=== PATIENT | female | born 1945 | race Caucasian/White ===

== ENCOUNTER 2017-07-20 11:22 | Inpatient (IN) | payer MEDICARE ==
[~2017-07-20 11:22] MED LIST: ACETAMINOPHEN 1,000 MG/100 ML BTL IV ONE; CEFAZOLIN 2 Gram 2 GM/50 ML BAG IVPB ONE; FAMOTIDINE 20MG TABLET PO ONE; MECLIZINE 25 MG TABLET PO ONE; METOCLOPRAMIDE 10 MG TABLET PO ONE
[2017-07-20] MEDS ORDERED: FENTANYL PF 100MCG/2ML VIAL IV ONE (14:00)
[2017-07-20] MEDS ORDERED: MORPHINE SULFATE 5 MG/ML PFS IVP ONE (14:00)
[2017-07-20] MEDS ORDERED: SUGAMMADEX SODIUM 200 MG/2 ML VIAL IV ONE (14:00)
[2017-07-20] MEDS ORDERED: SEVOFLURANE 250 ML INH ONE (14:00)
[2017-07-20] MEDS ORDERED: EPHEDRINE SULFATE 50 MG/ML ML IV ONE (14:00)
[2017-07-20] MEDS ORDERED: PROPOFOL 10 MG/ML VIAL IV ONE (14:00)
[2017-07-20] MEDS ORDERED: LIDOCAINE 2% MDV (20MG/ML) 20ML VIAL IV ONE (14:00)
[2017-07-20] MEDS ORDERED: ONDANSETRON HCL IV 4 MG/2 ML VIAL IVP ONE (14:00)
[2017-07-20] MEDS ORDERED: MIDAZOLAM HCL 2MG/2ML VIAL IV ONE (14:00)
[2017-07-20] MEDS ORDERED: KETOROLAC 30 MG/ML VIAL IVP ONE (14:00)
[2017-07-20] MEDS ORDERED: OXYCODONE HCL 5 MG TABLET PO PRN ×2 (14:23)
[2017-07-20] MEDS ORDERED: OXYCODONE HCL/APAP 5MG/325MG TABLET PO PRN ×2 (14:23)
[2017-07-20] MEDS ORDERED: HYDROCODONE/APAP 5/325MG TABLET PO PRN (14:23)
[2017-07-20] MEDS ORDERED: DIPHENHYDRAMINE HCL 25 MG CAPSULE PO PRN (14:30)
[2017-07-20] MEDS ORDERED: ONDANSETRON HCL IV 4 MG/2 ML VIAL IVP PRN (14:30)
[2017-07-20] MEDS ORDERED: TRAMADOL HCL 50 MG TABLET PO PRN ×2 (14:30)
[2017-07-20] MEDS ORDERED: ZOLPIDEM TARTRATE 5 MG TABLET PO PRN (14:30)
[2017-07-20] MEDS ORDERED: MAGNESIUM HYDROXIDE 30 ML UDC PO PRN (14:30)
[2017-07-20] MEDS ORDERED: METOCLOPRAMIDE HCL 10 MG/2 ML VIAL IVP PRN (14:30)
[2017-07-20] MEDS ORDERED: SENNOSIDES/DOCUSATE SODIUM UD CAPSULE PO PRN (14:30)
[2017-07-20] MEDS ORDERED: AL HYDROX/MAG HYDROX 30ML UD PO PRN (14:30)
[2017-07-20] MEDS ORDERED: HETASTARCH IN 0.9 % NACL 500 ML IV ONE (15:20)
[2017-07-20] MEDS: HYDROCODONE/APAP 5/325MG TABLET PO PRN (15:32)
[2017-07-20] MEDS: RINGERS SOLUTION,LACTATED 1,000 ML IV SCH (15:42)
[2017-07-20] MEDS ORDERED: PNEUM 23-VAL ADULT IM ONE (15:46)
[2017-07-20] MEDS ORDERED: RINGERS SOLUTION,LACTATED 1,000 ML IV PRN (16:23)
--- NOTE | 2017-07-20 18:07 | Rehab Evaluation ---
Patient Information - Patient Information Diagnosis: OA R hip, s/p total hip arthroplasty Ordered Treatment: PT Evaluate and Treat Status: Initial Evaluation Surgery: Yes (R RAJINDER) Date of Surgery: 07/20/17 History: Detail (Pt has had progressive degeneration of R hip over the past couple of years, experiencing increasing pain and difficulty walking.) Past Med/Ashley Hx Detail: Detail Past Medical/Surgical Hx: PAST MEDICAL/SURGICAL HISTORY Past Surgical History left RAJINDER 5-16 hysterectomy; foot sx left; bilateral total knee arthroplasty; colonoscopy-several PMH - Respiratory Hx Respiratory Disorders No Hx of URI Yes Hx of Productive Cough Yes Comment: sinus drainage and runny nose with clear prod cough x's 4 days no fever PMH - Cardiovascular Hx Cardiovascular Disorders Yes Hx Hypotension Yes Hx Palpitations Yes: 'fluttery sometimes" Exercise Tolerance Good PMH - Neuro Hx Neurological Disorders Yes Hx Dizziness Yes: sometimes Hx Headaches Yes Hx Syncope Yes: several times-low BP? PMH - GI Hx Gastrointestinal Disorders Yes PMH - Hx Genitourinary Disorders Yes Hx Bladder Problem Yes: frequent urination Comment: hyst PMH - Endocrine Hx Endocrine Disorders No Comment: blood sugar was low on pre op labs PMH - Musculoskeletal Hx Musculoskeletal Disorders Yes Hx Arthritis Yes: osteoarthritis in left hip PMH - Psych Hx Psychiatric Problems Yes Hx Depression Yes PMH - Hematology/Oncology Hx Hematology/Oncology Yes Disorders Hx Anemia Yes: hx of Hx Cancer Yes: skin cancer bcc and squamous Premorbid Status: Detail (Pt was ambulating over community distances/surfaces w/ o assistive device but had somewhat antalgic quality to her gait.) Social History: Detail (Pt lives in 2 story home w/spouse, for whom she is primary caregiver. She has been living on the first floor primarily recently. She has two steps to get into the house with handrails on both sides, as well as a ramp. She has elevated toilet and walk-in shower with grab bars and shower chair. She will have her sister, a retired nurse, stay with her for a week or two after returning home.) Precautions: [place], Fall, Other (Total hip arthroplasty precautions for posterior approach) - Time With Patient Total Time Spent With Patient (Min): 45 Treatment Procedures: Detail (PT Evaluation) Subjective Information - Subjective Information Per Patient (Pt in bed upon arrival, awake/alert, cooperative for therapy. States she is having very little pain, no nausea, a little lightheaded.) Objective Data - Pain Pain Present: Yes Pain Intensity: 2 Pain Scale Used: Numeric (1 - 10) - Mental Status Patient Orientation: Oriented x3 - Visual Perception Appears within normal limits for therapeutic activities - ROM Not within normal limits (WNL in R LE and L knee and ankle; within RAJINDER precautions in L hip.) - Strength/Tone Not within normal limits (3/5 strength in L hip flexion, abduction, adduction, extension; 4/5 L knee flex/ext, 4+/5 L ankle df. All major ms groups of R LE are 4+/5.) - Coordination Appears within normal limits for therapeutic activities - Bed Mobility Needs Assist (CGA for L LE, used trapeze to scoot to edge of bed.) - Transfers Needs Assist (CGA/SBA for sit/stand transfers to front-wheeled walker, to bedside chair.) - Balance Balance Sitting: Good Balance Standing: Good - Sensation Intact - Gait Detail (Pt ambulated from bedside out to hallway for 52 feet and returned to bedside chair (about 115 feet total), WBAT L LE w/SBA and front wheeled walker.) Therapy Assessment - Therapy Assessment Detail (Pt exhibits mobility impairments consistent with post surgical condition. She is a good candidate for inpatient physical therapy.) Patient Education - Patient Education Teaching Topic: Equipment Use, Exercise/Activity, Precautions Response: Reinforcement Needed, Verbalize Understanding Teaching Method: Discussion Teaching Recipient: Patient Barriers To Learning: None Problem List - Problem List Physical Therapy Problem List: Detail (1. Requires assist w/bed mobility. 2. Requires assist w/transfers. 3. Difficulty walking. 4. General weakness L LE.) Goals - Goals Physical Therapy Goals: 1. Pt will safely and independently get in/out of bed. 2. Pt will safely and independently transfer from bed to chair or toilet. 3. Pt will safely ambulate w/front wheeled walker over household distances w/ supervision. 4. Pt will safely ascend/descend three steps w/walker and handrail w/supervision/CGA. 5. Pt will be independent in basic home exercise program. Prognosis - Prognosis Good Plan - Plan Physical Therapy Plan: Pt will be seen twice tomorrow to address bed mobility, transfers, gait and home exercise program. Anticipate discharge after second session.
[2017-07-20] MEDS: CEFAZOLIN 2 Gram 2 GM/50 ML BAG IVPB SCH (19:57)
[2017-07-20] MEDS: ASPIRIN 325 MG TAB ENTERIC-COATED PO SCH (22:25)
[2017-07-21] MEDS: HYDROCODONE/APAP 5/325MG TABLET PO PRN ×2 (03:15→08:42)
[2017-07-21] MEDS: CEFAZOLIN 2 Gram 2 GM/50 ML BAG IVPB SCH ×2 (03:16→11:46)
[2017-07-21 06:53] LABS: HEMATOCRIT 27.4 % (35.0-47.0); HEMOGLOBIN 8.8 gm/dl (11.6-16.0); MEAN CELL VOLUME 93.2 fl (81-97); MEAN CORPUSCULAR HEMOGLOBIN 29.9 pg (27-33); MEAN CORPUSCULAR HGB CONC 32.1 g/dl (32-36); MEAN PLATELET VOLUME 9.8 fl (7.4-10.4); PLATELET COUNT 232 K/uL (130-400); RED BLOOD COUNT 2.94 M/uL (3.80-5.40); RED CELL DISTRIBUTION WIDTH 13.8 % (11.5-14.5); WHITE BLOOD COUNT W/O DIFF 5.2 K/uL (4.2-12.2)
[2017-07-21] MEDS: RINGERS SOLUTION,LACTATED 1,000 ML IV SCH (08:43)
[2017-07-21] MEDS: ASPIRIN 325 MG TAB ENTERIC-COATED PO SCH (09:49)
--- NOTE | 2017-07-21 11:01 | Physical Therapy Tx Note ---
Physical Therapy Tx Note - Treatment Note Tolerated: Good Total Time Spent With Patient: 30 Physical Therapy Tx Note: Detail (Pt up in chair upon arrival, awake/alert, cooperative for therapy. Performed 10 reps each of reclined marching, LAQ, ankle pumps, isometric hip adduction w/pillow, isometric hip abduction w/manual resistance, gluteal isometrics. Sit/stand to front-wheeled walker independently , ambulated from bedside to nrsg station and back to bed (about 156 feet), with SBA and assist for IV pole. SBA for R LE up onto bed; placed pillow between LE' s, reapplied intermittent compression, placed call light and bedside table in reach.) Physical Therapy Problem List: Detail (1. Requires assist w/bed mobility. 2. Requires assist w/transfers. 3. Difficulty walking. 4. General weakness L LE.) Physical Therapy Goals: 1. Pt will safely and independently get in/out of bed. 2. Pt will safely and independently transfer from bed to chair or toilet - MET. 3. Pt will safely ambulate w/front wheeled walker over household distances w/ supervision - MET. 4. Pt will safely ascend/descend three steps w/walker and handrail w/supervision/CGA. 5. Pt will be independent in basic home exercise program - MET. Prognosis: Good Physical Therapy Plan: Pt will be seen this afternoon to address bed mobility, transfers, gait and stair training. Anticipate discharge after PT.
--- NOTE | 2017-07-21 11:31 | Rehab Evaluation ---
Patient Information - Patient Information Diagnosis: OA R hip, s/p total hip arthroplasty Ordered Treatment: OT Evaluate and Treat Status: Initial Evaluation Surgery: Yes (R RAJINDER) Date of Surgery: 07/20/17 History: Detail (Pt has had progressive degeneration of R hip over the past couple of years, experiencing increasing pain and difficulty walking.) Past Medical/Surgical Hx: PAST MEDICAL/SURGICAL HISTORY Past Surgical History left RAJINDER 5-16 hysterectomy; foot sx left; bilateral total knee arthroplasty; colonoscopy-several PMH - Respiratory Hx Respiratory Disorders No Hx of URI Yes Hx of Productive Cough Yes Comment: sinus drainage and runny nose with clear prod cough x's 4 days no fever PMH - Cardiovascular Hx Cardiovascular Disorders Yes Hx Hypotension Yes Hx Palpitations Yes: 'fluttery sometimes" Exercise Tolerance Good PMH - Neuro Hx Neurological Disorders Yes Hx Dizziness Yes: sometimes Hx Headaches Yes Hx Syncope Yes: several times-low BP? PMH - GI Hx Gastrointestinal Disorders Yes PMH - Hx Genitourinary Disorders Yes Hx Bladder Problem Yes: frequent urination Comment: hyst PMH - Endocrine Hx Endocrine Disorders No Comment: blood sugar was low on pre op labs PMH - Musculoskeletal Hx Musculoskeletal Disorders Yes Hx Arthritis Yes: osteoarthritis in left hip PMH - Psych Hx Psychiatric Problems Yes Hx Depression Yes PMH - Hematology/Oncology Hx Hematology/Oncology Yes Disorders Hx Anemia Yes: hx of Hx Cancer Yes: skin cancer bcc and squamous Premorbid Status: Detail (Pt was ambulating over community distances/surfaces w/ o assistive device but had somewhat antalgic quality to her gait.) Social History: Detail (Pt lives in 2 story home w/spouse, for whom she is primary caregiver. She has been living on the first floor primarily recently. She has two steps to get into the house with handrails on both sides, as well as a ramp. She has elevated toilet and walk-in shower with grab bars and shower chair. She will have her sister, a retired nurse, stay with her for a week or two after returning home. She is Ind with all ADLs/IADLs and has a 2 wheeled walker, shower chair, practice administrator, sock aid and shoe horn.) Precautions: [place], Fall, Other (Total hip arthroplasty precautions for posterior approach) - Time With Patient Total Time Spent With Patient (Min): 40 Treatment Procedures: Detail (OT eval low complexity) Subjective Information - Subjective Information Per Patient Objective Data - Pain Pain Present: Yes (07/01) - Mental Status Patient Orientation: Oriented x3 - Visual Perception Appears within normal limits for therapeutic activities (Pt wears glasses.) - ROM Within normal limits (Hernandez UE AROM WNL) - Strength/Tone Within normal limits (Hernandez UE strength WNL) - Coordination Appears within normal limits for therapeutic activities - Bed Mobility Independent (Ind with supine to sit and sit to supine.) - Transfers Independent (Ind with sit to stand from bed and commode.) - Balance Balance Sitting: Good Balance Standing: Good - Sensation Intact - Gait Detail (Pt ambulating in room with 2 wheeled walker Indly.) - ADL's/IADL's Detail (Pt able to demonstrate Ind with partial sponge bath at sink in standing and total body dressing using practice administrator and sock aid while maintaining total hip precautions. Reviewed safety for IADLs, pt verbalizes learning.) Therapy Assessment - Therapy Assessment Detail (Pt is safe and Ind with self cares with use of adaptive equipment while maintaining hip precautions.) Problem List - Problem List Physical Therapy Problem List: Detail (1. Requires assist w/bed mobility. 2. Requires assist w/transfers. 3. Difficulty walking. 4. General weakness L LE.) Occupational Therapy Problem List: Detail (No current OT goals identified at this time.) Goals - Goals Physical Therapy Goals: 1. Pt will safely and independently get in/out of bed. 2. Pt will safely and independently transfer from bed to chair or toilet - MET. 3. Pt will safely ambulate w/front wheeled walker over household distances w/ supervision - MET. 4. Pt will safely ascend/descend three steps w/walker and handrail w/supervision/CGA. 5. Pt will be independent in basic home exercise program - MET. Occupational Therapy Goals: No current OT goals identified at this time. Prognosis - Prognosis Good Plan - Plan Physical Therapy Plan: Pt will be seen this afternoon to address bed mobility, transfers, gait and stair training. Anticipate discharge after PT. Occupational Therapy Plan: No further OT recommended at this time. Thank you for this referral.
--- NOTE | 2017-07-21 12:21 | Operative Note ---
DATE OF SURGERY: 07/20/2017 Surgeon: Jay Nunn DO PREOPERATIVE DIAGNOSIS: Osteoarthritis of the right hip. POSTOPERATIVE DIAGNOSIS: Osteoarthritis of the right hip. OPERATION: Right total hip arthroplasty. DESCRIPTION OF PROCEDURE: This 72-year-old female was taken to the operating room and placed in the supine position on the operating room table. A general anesthetic was administered. She was then placed in the left lateral decubitus position and bolstered perpendicular to the floor. All scrub personnel wore personal isolation suits. The right hip was prepped with Hibiclens and draped in the usual sterile fashion. A lateral hip incision was made dissecting down through the skin and subcutaneous tissue. Hemostasis obtained with the electrocautery. The tensor was divided in line with the skin incision. Gluteus neela was split. Self-retaining hip retractor was placed. The short rotators divided from the posterior aspect of the femur. Capsulotomy was performed. Steinmann pins were used as retractors superiorly, posterosuperiorly, and posteroinferiorly. Then with excellent exposure to the acetabulum, a maddi was made on the greater trochanter measured to the proximal pin. This distance restored at the completion of the procedure. The hip was then dislocated and the neck amputated. Marked osteophyte formation around the neck of the femur was identified and these were removed. Cobra retractor was placed anteriorly. Superior osteophytes and some posterior osteophytes present in the acetabulum were also removed. We then began reaming with a size 46 mm reamer in 1 mm increments to a size 52 to the base of the condyloid notch. All soft tissue had been removed from the acetabulum. Healthy appearing bone was noted. The wound copiously irrigated with lactated Ringer's solution. Subsequently, a size 52 mm Trident cup was impacted into place in approximately 45 degrees of abduction and approximately 20 degrees of anteversion. A trial liner was subsequently placed. We then directed our attention to the proximal femur, and a box osteotome was used to cut the proximal femur. waterworks employee was then used to pass down the shaft of the femur and subsequently we used the power reamer and used an alternating ream/broach technique to seat a size 7 broach. The neck cut on the femur was seen to be satisfactory. A trial reduction was subsequently accomplished with a neutral head which was seen to be too tight. Subsequently, a -5 was used which gave us methodist of anatomic length. The hip was taken through range of motion and found to be stable. All trial components were then removed and the wound copiously irrigated with pulse lavage, lactated Ringer's solution. A 32 mm X3 liner 0 degree was impacted into place. This was followed by the insertion of the femoral component. A size 7 collared Secur-Fit femur was used and a size 36 mm Biolox head -5 mm was impacted into place. The hip reduced. The hip was again taken through range of motion and found to be stable and methodist of anatomic position. The joint was then copiously irrigated with pulse lavage, lactated Ringer's solution. It was suctioned. A drain placed through a separate stab incision. The short rotators reattached through drill holes through the greater trochanter. Subsequently the tensor was closed over the drain which had been punctured through the tensor and out the anterior lateral aspect of the proximal femur. Once the tensor and gluteus neela had been reapproximated, the subcutaneous fat was closed in 2 layers because of at least 4-5 inches of fat was present. The skin was then stapled. Sterile dressings applied. The patient was taken to the recovery room in satisfactory condition. GROSS PATHOLOGY: This patient demonstrated severe osteoarthritis of the left hip as described above. FINAL COMPONENTS INSERTED: [place] Secur-Fit collared size 7 femur, a 52 mm Trident cup with a 32 mm X3 liner 0 degree, and a 36 mm -5 Biolox head was used. [facility]
[2017-07-21] MEDS ORDERED: ACETAMINOPHEN 325 MG TAB PO PRN (14:30)
--- NOTE | 2017-07-21 15:01 | Physical Therapy Tx Note ---
Physical Therapy Tx Note - Treatment Note Tolerated: Other (Pt. unable to be assessed due to discharge from hospital prior to PT appointment.) Total Time Spent With Patient: 0 Physical Therapy Tx Note: Detail (Pt. unable to be seen for PT appointment due to hospital D/C.) Physical Therapy Problem List: Detail (1. Requires assist w/bed mobility. 2. Requires assist w/transfers. 3. Difficulty walking. 4. General weakness L LE.) Physical Therapy Goals: 1. Pt will safely and independently get in/out of bed. 2. Pt will safely and independently transfer from bed to chair or toilet - MET. 3. Pt will safely ambulate w/front wheeled walker over household distances w/ supervision - MET. 4. Pt will safely ascend/descend three steps w/walker and handrail w/supervision/CGA. 5. Pt will be independent in basic home exercise program - MET. Physical Therapy Plan: D/C pt. from inpatient PT due to gone from hospital.
--- NOTE | 2017-07-24 12:31 | Discharge Summary ---
DATE OF ADMISSION: 07/20/2017 DATE OF DISCHARGE: 07/21/2017 ADMITTING DIAGNOSIS: Osteoarthritis of the right hip. DISCHARGE DIAGNOSIS: Osteoarthritis of the right hip. OPERATIVE PROCEDURE: Elective right total hip arthroplasty. DESCRIPTION: This 72-year-old female was admitted to the hospital for elective total hip arthroplasty. She tolerated the operative procedure well. Drains was removed the first postoperative day. She was cleared by physical therapy and ready for discharge. She did have some blood loss anemia which will be treated with iron 325 mg t.i.d. She will be discharged with a prescription for [place] 5 mg, #60, 1-2 every 6 hours as necessary for pain. She will take 1 aspirin daily. She was instructed to wear her DIANE hose during the day and remove them at night. Routine wound care instructions were given. She will have outpatient physical therapy and follow up in my office in 2 weeks. Should she have any problems prior to being seen, she was instructed to call my office. JEMMA
== END 2017-07-21 14:30 | disposition home or self-care (01) | DRG 470 ==
LOC: MEDSURG 11:22
PROVIDERS: ADMIT Orthopaedic Surgery; ATTEND Orthopaedic Surgery
PROC: 0SR9069 Replacement of Right Hip Joint with Oxidized Zirconium on Polyethylene Synthetic Substitute, Cemented, Open Approach (ICD-10-PCS; principal; 2017-07-20 13:30)
DX: M16.11 Unilateral primary osteoarthritis, right hip (principal)
CPT/HCPCS: 85025; 90732; 94760; 97110; 97165; 97530; C1776; J1885; J2405; J3490; J7120

== ENCOUNTER 2018-07-23 08:47 | Day surgery (SDC) | payer MEDICARE ==
[2018-07-23] MEDS ORDERED: LIDOCAINE 2% MDV (20MG/ML) 20ML VIAL IV ONE (08:48)
[2018-07-23] MEDS ORDERED: PROPOFOL 10 MG/ML VIAL IV ONE (08:48)
--- NOTE | 2018-07-24 12:31 | Operative Note ---
DATE OF SURGERY: 07/23/2018 Surgeon: Faustino Staples D.O. Referring physician: Mariano Aguilar D.O. OPERATION: COLONOSCOPY TO THE CECUM. INDICATION: A previous history of colon polyps. The patient reported that she had polyps removed by Dr. Lacho Nixon many years ago and was told at that time that the polyps "needed to be watched." After viewing my records, this is what I saw. She presents today for surveillance. It has been over 5 years since her last examination. Anesthesia: Intravenous sedation was administered by the Department of Anesthesiology and included Diprivan titrated to effect. PROCEDURE: Following informed consent from this alert individual, including a discussion of the risks and benefits of the procedure and opportunity for the patient to ask questions, the patient was in the left lateral decubitus position. Digital rectal examination was performed. No abnormalities were noted. Following this, the Olympus PCF 180 video colonoscope was inserted in the rectum without resistance. The rectal mucosa had a normal appearance with normal folds and distensibility. The colonoscope was advanced up through the bowel to the level of the cecum without much difficulty. Throughout the remainder of the bowel the mucosa appeared normal, folds were normal. The bowel was filled with distensible. The cecum was defined by noting the appendiceal orifice and the ileocecal valve. From the base of the cecum, the colonoscope was then withdrawn. No abnormalities were detected upon withdrawal until the rectum was reached. Retroflexion in the rectum revealed a hypertrophied anal papilla. The endoscope was straightened and removed. The patient tolerated the procedure well and was returned to the recovery area in stable condition. Overall, the colon preparation was good. IMPRESSION: Hypertrophied anal papilla, otherwise unremarkable colonoscopy to the cecum. RECOMMENDATIONS: Because of the patient's prior history of polyps, which sounded to be adenomatous by her report, I did recommend a recheck colonoscopy for surveillance in 5 years. Follow up will also be with Dr. Aguilar. CC: MARIANO AGUILAR D.O. Faustino Staples DO MTDD
== END 2018-07-23 10:15 | disposition home or self-care (01) ==
LOC: HOP 08:47
PROVIDERS: ATTEND Internal Medicine Gastroenterology
DX: Z12.11 Encounter for screening for malignant neoplasm of colon (principal); Z86.010 Personal history of colon polyps; K62.89 Other specified diseases of anus and rectum
CPT/HCPCS: 00812; G0105